=== PATIENT | female | born 1945 | race Two or more races ===

== ENCOUNTER 2017-03-31 08:28 | Outpatient (CLI) | payer MEDICARE, OTHER ==
[2017-03-31] MEDS ORDERED: REGADENOSON 0.4 MG/5 ML DISP.SYRIN IVP ONE (09:30)
== END 2017-03-31 23:59 | disposition home or self-care (01) ==
LOC: RAD 08:28
PROVIDERS: ATTEND Internal Medicine Interventional Cardiology
DX: R07.9 Chest pain, unspecified (principal)
CPT/HCPCS: 78452; A9502; J2785

== ENCOUNTER 2017-04-02 11:08 | Outpatient (CLI) | payer MEDICARE, OTHER | END 2017-04-02 23:59 | disposition home or self-care (01) | LOC: CARD 11:08 | PROVIDERS: ATTEND Internal Medicine Interventional Cardiology | DX: R42 Dizziness and giddiness (principal); R09.89 Other specified symptoms and signs involving the circulatory and respiratory systems | CPT/HCPCS: 93880-TC ==